=== PATIENT | female | born 1955 | race Caucasian/White ===

== ENCOUNTER 2022-09-10 10:58 | Inpatient (IN) | payer OTHER ==
[2022-09-10 16:16] LABS: HEMATOCRIT 37.8 % (32.4-45.2); HEMOGLOBIN 12.5 GM/dL (10.7-15.3); MCH 32.3 pg (25.7-33.7); MCHC 33.1 g/dl (32.0-36.0); MEAN CELL VOLUME 97.6 fl (80-96); MEAN PLT VOLUME 9.4 fl (7.5-11.1); RBC 3.87 M/mm3 (3.60-5.2); RDW 13.6 % (11.6-15.6)
[2022-09-10 16:32] LABS: CALCIUM 8.8 mg/dL (8.5-10.1)
[2022-09-10 16:33] LABS: ALBUMIN 3.1 g/dl (3.4-5.0); BLOOD UREA NITROGEN 20.4 mg/dL (7-18)
[2022-09-10 16:36] LABS: CREATININE 1.1 mg/dL (0.55-1.3)
[2022-09-10 16:37] LABS: BILIRUBIN,TOTAL 0.7 mg/dL (0.2-1); TOT PROT 6.6 g/dl (6.4-8.2)
[2022-09-10 16:59] LABS: ANISOCYTOSIS 1+; MACROCYTOSIS 0
[2022-09-10 17:00] LABS: WHITE BLOOD COUNT 17.8 K/mm3 (4.0-10.0)
[2022-09-10 17:01] LABS: PLATELET COUNT 215 10^3/uL (134-434)
[2022-09-10 17:36] LABS: EPI CELLS 24 /uL (0-25.1); HYALINE CASTS 4 /uL (0-3.1); PH,URINE 8.5 (5.0-8.0); URINE APPEARANCE CLOUDY; URINE BACTERIA >9,000 /uL (0-1359); URINE BILIRUBIN NEGATIVE (NEGATIVE); URINE COLOR DK YELLOW; URINE GLUCOSE (UA) NEGATIVE (NEGATIVE); URINE KETONE 1+ (NEGATIVE); URINE LEUK ESTERASE 1+ (NEGATIVE); URINE NITRITE POSITIVE (NEGATIVE); URINE PROTEIN 4+ (NEGATIVE); URINE WBC 398 /uL (0-25.8)
[2022-09-10 17:39] LABS: URINE RBC 71 /uL (0-23.9)
[2022-09-10] MEDS ORDERED: CEFTRIAXONE 1,000 MG in DEXTROSE 5%-WATER - 50 ML IVPB ONE (17:39)
[2022-09-10] MEDS ORDERED: CEFTRIAXONE 1 GM/50 ML BAG ONE (17:51)
[2022-09-11] MEDS: SODIUM CHLORIDE 1,000 ML IV SCH ×2 (01:50→23:09)
[2022-09-11 07:09] VITALS: BMI 24.3
[2022-09-11 08:52] LABS: HEMATOCRIT 35.1 % (32.4-45.2); HEMOGLOBIN 11.8 GM/dL (10.7-15.3); MCH 32.9 pg (25.7-33.7); MCHC 33.8 g/dl (32.0-36.0); MEAN CELL VOLUME 97.4 fl (80-96); MEAN PLT VOLUME 9.4 fl (7.5-11.1); PLATELET COUNT 150 10^3/uL (134-434); RDW 13.1 % (11.6-15.6); WHITE BLOOD COUNT 12.7 K/mm3 (4.0-10.0)
[2022-09-11 08:53] LABS: BASO % 0.1 % (0-2.0); EOS % 0.1 % (0-4.5); LYMPH % 5.4 % (8-40); MONO % 10.8 % (3.8-10.2); NEUT % 83.6 % (42.8-82.8)
[2022-09-11] MEDS: CEFTRIAXONE 1 GM in DEXTROSE 5%-WATER - 50 ML IVPB SCH (09:21)
[2022-09-11] MEDS: CHOLECALCIFEROL (VIT D3) 1,000 UNIT (25 MCG) TABLET PO SCH (09:21)
[2022-09-11] MEDS: levETIRAcetam 500 MG TABLET (FP) PO SCH ×2 (09:21→22:04)
[2022-09-11] MEDS: ENOXAPARIN NA (PORCINE) 40 MG/0.4 ML DISP.SYRIN SQ SCH (09:21)
[2022-09-11 09:34] LABS: ALBUMIN 2.8 g/dl (3.4-5.0); BLOOD UREA NITROGEN 27.9 mg/dL (7-18); CALCIUM 8.2 mg/dL (8.5-10.1); MAGNESIUM 2.3 mg/dL (1.8-2.4)
[2022-09-11 09:37] LABS: CREATININE 1.1 mg/dL (0.55-1.3); PHOSPHOROUS 4.2 mg/dL (2.5-4.9)
[2022-09-11 09:38] LABS: BILIRUBIN,TOTAL 0.5 mg/dL (0.2-1); TOT PROT 6.3 g/dl (6.4-8.2)
[2022-09-11] MEDS: carBAMazepine 200 MG TABLET PO SCH ×5 (10:00→22:04)
[2022-09-11] MEDS: VENLAFAXINE HCL 75 MG E.R. CAPSULES PO SCH (13:22)
[2022-09-11] MEDS: TOLTERODINE TARTRATE LA 4 MG CAP.SR.24H (FP) PO SCH (13:22)
[2022-09-11] MEDS ORDERED: ATORVASTATIN CA 20 MG TABLET (FP) PO SCH (22:00)
[2022-09-11] MEDS ORDERED: MELATONIN 5 MG TABLETS PO SCH (22:00)
[2022-09-12] MEDS ORDERED: POTASSIUM CHLORIDE ORAL LIQUID 20 MEQ/15 ML PO ONE ×2 (09:30→13:00)
[2022-09-12] MEDS: CEFTRIAXONE 1 GM in DEXTROSE 5%-WATER - 50 ML IVPB SCH (09:55)
[2022-09-12] MEDS: ENOXAPARIN NA (PORCINE) 40 MG/0.4 ML DISP.SYRIN SQ SCH (09:56)
[2022-09-12] MEDS: levETIRAcetam 500 MG TABLET (FP) PO SCH (09:56)
[2022-09-12] MEDS: CHOLECALCIFEROL (VIT D3) 1,000 UNIT (25 MCG) TABLET PO SCH (09:56)
[2022-09-12] MEDS: TOLTERODINE TARTRATE LA 4 MG CAP.SR.24H (FP) PO SCH (09:57)
[2022-09-12] MEDS: VENLAFAXINE HCL 75 MG E.R. CAPSULES PO SCH (09:57)
[2022-09-12] MEDS: carBAMazepine 100 MG TAB.CHEW PO SCH ×2 (09:59→14:03)
[2022-09-12 11:35] LABS: BASO % 0.1 % (0-2.0); EOS % 0.6 % (0-4.5); HEMATOCRIT 31.8 % (32.4-45.2); HEMOGLOBIN 10.9 GM/dL (10.7-15.3); LYMPH % 9.5 % (8-40); MCH 32.9 pg (25.7-33.7); MCHC 34.3 g/dl (32.0-36.0); MEAN CELL VOLUME 95.9 fl (80-96); MONO % 14.1 % (3.8-10.2); NEUT % 75.7 % (42.8-82.8); PLATELET COUNT 145 10^3/uL (134-434); RBC 3.31 M/mm3 (3.60-5.2); RDW 13.4 % (11.6-15.6); WHITE BLOOD COUNT 9.1 K/mm3 (4.0-10.0)
[2022-09-12 12:07] LABS: BLOOD UREA NITROGEN 18.6 mg/dL (7-18); CALCIUM 7.9 mg/dL (8.5-10.1)
[2022-09-12 12:10] LABS: CREATININE 0.6 mg/dL (0.55-1.3)
[2022-09-12 17:34] VITALS: BP 121/51; PULSE 74; RESP 18; TEMP 97.9
== END 2022-09-12 16:23 | disposition home or self-care (01) | DRG 690 ==
LOC: JER 10:58 → JERBED 17:58 → J5S 22:33
PROVIDERS: ADMIT Internal Medicine; ATTEND Internal Medicine
DX: N39.0 Urinary tract infection, site not specified (principal); E78.5 Hyperlipidemia, unspecified; G35 Multiple sclerosis; R00.0 Tachycardia, unspecified; F17.210 Nicotine dependence, cigarettes, uncomplicated; F32.9 Major depressive disorder, single episode, unspecified; N32.81 Overactive bladder; G40.909 Epilepsy, unspecified, not intractable, without status epilepticus; B96.4 Proteus (mirabilis) (morganii) as the cause of diseases classified elsewhere; Y92.098 Other place in other non-institutional residence as the place of occurrence of the external cause; W18.39XA Other fall on same level, initial encounter
CPT/HCPCS: 0241U-QW; 36415; 70450-TC; 71045-TC-FY; 72125-TC; 80048; 80053; 81003; 83735; 84100; 84484; 85025; 87086; 87186; 93005; 93010; 97116-GP; 97162-GP; 99285-25

== ENCOUNTER 2023-09-05 17:37 | Inpatient (IN) | payer OTHER ==
[2023-09-05] MEDS ORDERED: SODIUM CHLORIDE 0.9% 500 ML INFUS.BAG IV ONE ×2 (19:26→21:58)
[2023-09-05] MEDS ORDERED: ACETAMINOPHEN 325 MG TABLET (FP) PO ONE (19:26)
[2023-09-05] MEDS ORDERED: FAMOTIDINE 10 MG TABLET PO ONE (19:26)
[2023-09-05] MEDS ORDERED: MAG HYDROX/AL HYDROX/SIMETH 30 ML UNIT-DOSE CUP PO ONE (19:26)
[2023-09-05] MEDS ORDERED: levETIRAcetam 500 MG TABLET (FP) PO ONE (19:39)
[2023-09-05] MEDS ORDERED: PIPERACILLIN/TAZOB 3.375 GM 3.375 GM in DEXTROSE 5%-WATER - 50 ML IVPB ONE (19:52)
[2023-09-05] MEDS ORDERED: ACETAMINOPHEN 325 MG TABLET (FP) ONE (19:55)
[2023-09-05] MEDS ORDERED: FAMOTIDINE 20 MG TABLET ONE (19:55)
[2023-09-05] MEDS ORDERED: MAG HYDROX/AL HYDROX/SIMETH 30 ML UNIT-DOSE CUP ONE (19:55)
[2023-09-05 20:08] LABS: EPI CELLS 5 /uL (0-25.1); HYALINE CASTS 0 /uL (0-3.1); URINE APPEARANCE Error; URINE BACTERIA >9,000 /uL (0-1359); URINE BILIRUBIN NEGATIVE (NEGATIVE); URINE COLOR YELLOW; URINE GLUCOSE (UA) NEGATIVE (NEGATIVE); URINE KETONE 1+ (NEGATIVE); URINE LEUK ESTERASE 3+ (NEGATIVE); URINE NITRITE NEGATIVE (NEGATIVE); URINE PROTEIN 1+ (NEGATIVE); URINE RBC 674 /uL (0-23.9); URINE WBC 520 /uL (0-25.8)
[2023-09-05 21:18] LABS: HEMATOCRIT 28.8 % (32.4-45.2); HEMOGLOBIN 9.8 GM/dL (10.7-15.3); MCH 31.7 pg (25.7-33.7); MCHC 34.1 g/dl (32.0-36.0); MEAN CELL VOLUME 92.9 fl (80-96); MEAN PLT VOLUME 6.8 fl (7.5-11.1); PLATELET COUNT 501 10^3/uL (134-434); RDW 14.3 % (11.6-15.6); WHITE BLOOD COUNT 25.2 K/mm3 (4.0-10.0)
[2023-09-05 21:40] LABS: CHLORIDE 92 mmol/L (98-107); SODIUM 131 mmol/L (136-145)
[2023-09-05 21:42] LABS: ALBUMIN 2.1 g/dl (3.4-5.0)
[2023-09-05 21:43] LABS: BLOOD UREA NITROGEN 15.4 mg/dL (7-18); CALCIUM 8.5 mg/dL (8.5-10.1); CO2 28 mmol/L (21-32); GLUCOSE,RANDOM 68 mg/dL (74-106); LIPASE 87 U/L (73-393)
[2023-09-05 21:44] LABS: MAGNESIUM 1.9 mg/dL (1.8-2.4)
[2023-09-05] MEDS ORDERED: DEXTROSE 50%-WATER - 25 GM/50 ML VIAL IVPUSH ONE (21:44)
[2023-09-05 21:45] LABS: CREATININE 0.8 mg/dL (0.55-1.3)
[2023-09-05 21:46] LABS: SGOT/AST 64 U/L (15-37); SGPT/ALT 34 U/L (13-61)
[2023-09-05 21:47] LABS: TOT PROT 6.5 g/dl (6.4-8.2)
[2023-09-05 21:48] LABS: ALK PHOS 155 U/L (45-117)
[2023-09-05 21:52] LABS: ANION GAP 10 mmol/L (4-13); POTASSIUM 2.8 mmol/L (3.5-5.1)
[2023-09-05] MEDS ORDERED: POTASSIUM CHLORIDE TABS 20 MEQ TABLET.ER (FP) PO ONE ×2 (21:55→22:07)
[2023-09-05] MEDS ORDERED: DEXTROSE 50%-WATER 25 GM/50 ML DISP.SYRIN ONE (22:07)
[2023-09-05] MEDS ORDERED: MAGNESIUM SULF 50% (8.12 MEQ/2 ML-1 GM VIAL) IVPB ONE (22:09)
[2023-09-05 22:10] LABS: ANISOCYTOSIS 1+; MACROCYTOSIS 0; PLATELET ESTIMATE INCREASED
[2023-09-05] MEDS ORDERED: MAGNESIUM SULFATE IN WATER 2 GM/50 ML IVPB IVPB ONE (22:22)
[2023-09-06] MEDS: KCL 10 MEQ IVPB 10 MEQ/100 ML INFUS.BAG IVPB SCH ×2 (00:26→02:16)
[2023-09-06] MEDS ORDERED: MELATONIN 5 MG TABLETS PO ONE (00:30)
[2023-09-06] MEDS ORDERED: MELATONIN 5 MG TABLETS ONE (00:41)
[2023-09-06] MEDS ORDERED: KCL 10 MEQ IVPB 10 MEQ/100 ML INFUS.BAG IVPB ONE (02:17)
[2023-09-06] MEDS ORDERED: POTASSIUM CHLORIDE ORAL LIQUID 20 MEQ/15 ML PO ONE ×2 (02:29→18:33)
[2023-09-06] MEDS ORDERED: PIPERACILLIN/TAZOB 3.375 GM 3.375 GM/50 ML BAG IVPB SCH ×2 (03:00→04:45)
[2023-09-06 04:08] VITALS: BMI 23.5
[2023-09-06 07:51] LABS: HEMATOCRIT 31.4 % (32.4-45.2); HEMOGLOBIN 10.6 GM/dL (10.7-15.3); MCH 31.9 pg (25.7-33.7); MCHC 33.8 g/dl (32.0-36.0); MEAN CELL VOLUME 94.4 fl (80-96); MEAN PLT VOLUME 7.1 fl (7.5-11.1); PLATELET COUNT 412 10^3/uL (134-434); RBC 3.33 M/mm3 (3.60-5.2); RDW 14.3 % (11.6-15.6); WHITE BLOOD COUNT 21.9 K/mm3 (4.0-10.0)
[2023-09-06 08:56] LABS: ANISOCYTOSIS 1+; MACROCYTOSIS 0
[2023-09-06 09:06] LABS: CHLORIDE 103 mmol/L (98-107); SODIUM 131 mmol/L (136-145)
[2023-09-06 09:20] LABS: CALCIUM 7.9 mg/dL (8.5-10.1)
[2023-09-06 09:21] LABS: BLOOD UREA NITROGEN 11.6 mg/dL (7-18); CO2 23 mmol/L (21-32); GLUCOSE,RANDOM 80 mg/dL (74-106)
[2023-09-06 09:24] LABS: CREATININE 0.6 mg/dL (0.55-1.3)
[2023-09-06 09:26] LABS: ANION GAP 6 mmol/L (4-13); POTASSIUM 8.2 mmol/L (3.5-5.1)
[2023-09-06] MEDS ORDERED: PIPERACILLIN/TAZOB 3.375 GM 3.375 GM in DEXTROSE 5%-WATER - 50 ML IVPB SCH ×2 (09:57→11:00)
[2023-09-06] MEDS: VENLAFAXINE HCL 75 MG E.R. CAPSULES PO SCH (10:46)
[2023-09-06] MEDS: levETIRAcetam 500 MG TABLET (FP) PO SCH ×2 (10:47→21:22)
[2023-09-06] MEDS: CHOLECALCIFEROL (VIT D3) 1,000 UNIT (25 MCG) TABLET PO SCH (10:47)
[2023-09-06] MEDS: PIPERACILLIN/TAZOB 3.375 GM 3.375 GM in DEXTROSE 5%-WATER - 50 ML IVPB SCH ×3 (11:31→20:26)
[2023-09-06 15:26] LABS: POTASSIUM 3.4 mmol/L (3.5-5.1)
[2023-09-06 15:28] LABS: CALCIUM 7.7 mg/dL (8.5-10.1)
[2023-09-06 15:29] LABS: BLOOD UREA NITROGEN 10.8 mg/dL (7-18)
[2023-09-06 15:32] LABS: CREATININE 0.7 mg/dL (0.55-1.3)
[2023-09-06] MEDS: ATORVASTATIN CA 20 MG TABLET (FP) PO SCH (21:22)
[2023-09-06] MEDS: MELATONIN 5 MG TABLETS PO SCH (21:22)
[2023-09-07] MEDS: PIPERACILLIN/TAZOB 3.375 GM 3.375 GM in DEXTROSE 5%-WATER - 50 ML IVPB SCH ×2 (02:01→09:08)
[2023-09-07] MEDS: CHOLECALCIFEROL (VIT D3) 1,000 UNIT (25 MCG) TABLET PO SCH (09:08)
[2023-09-07] MEDS: levETIRAcetam 500 MG TABLET (FP) PO SCH ×2 (09:08→22:23)
[2023-09-07] MEDS: VENLAFAXINE HCL 75 MG E.R. CAPSULES PO SCH (09:09)
[2023-09-07 09:19] LABS: HEMATOCRIT 29.3 % (32.4-45.2); HEMOGLOBIN 9.6 GM/dL (10.7-15.3); MCH 30.8 pg (25.7-33.7); MCHC 32.8 g/dl (32.0-36.0); MEAN PLT VOLUME 6.8 fl (7.5-11.1); PLATELET COUNT 454 10^3/uL (134-434); RBC 3.12 M/mm3 (3.60-5.2); RDW 14.5 % (11.6-15.6); WHITE BLOOD COUNT 24.5 K/mm3 (4.0-10.0)
[2023-09-07 09:51] LABS: POTASSIUM 3.5 mmol/L (3.5-5.1)
[2023-09-07 10:01] LABS: ANISOCYTOSIS 0; HELMET CELLS 0; HOWELL-JOLLY BODIES 0; MACROCYTOSIS 0; OVALOCYTE 0; ROULEAU 0; SICKELED CELLS 0; TARGET CELLS 0; TEAR DROP CELLS 0; TOXIC GRANULATION 0
[2023-09-07 10:08] LABS: CALCIUM 8.4 mg/dL (8.5-10.1)
[2023-09-07 10:10] LABS: BLOOD UREA NITROGEN 11.2 mg/dL (7-18)
[2023-09-07 10:12] LABS: CREATININE 0.5 mg/dL (0.55-1.3)
[2023-09-07] MEDS: CEFTRIAXONE 1 GM in DEXTROSE 5%-WATER - 50 ML IVPB SCH (10:47)
[2023-09-07] MEDS: carBAMazepine 200 MG TABLET PO SCH ×4 (10:48→22:22)
[2023-09-07] MEDS: MELATONIN 5 MG TABLETS PO SCH (22:23)
[2023-09-07] MEDS: ATORVASTATIN CA 20 MG TABLET (FP) PO SCH (22:23)
[2023-09-08] MEDS: levETIRAcetam 500 MG TABLET (FP) PO SCH ×2 (09:33→21:29)
[2023-09-08] MEDS: carBAMazepine 200 MG TABLET PO SCH ×4 (09:33→21:31)
[2023-09-08] MEDS: CHOLECALCIFEROL (VIT D3) 1,000 UNIT (25 MCG) TABLET PO SCH (09:33)
[2023-09-08] MEDS: CEFTRIAXONE 1 GM in DEXTROSE 5%-WATER - 50 ML IVPB SCH (09:34)
[2023-09-08] MEDS: VENLAFAXINE HCL 75 MG E.R. CAPSULES PO SCH (09:34)
[2023-09-08 13:32] LABS: HEMATOCRIT 30.1 % (32.4-45.2); HEMOGLOBIN 9.8 GM/dL (10.7-15.3); MCH 30.7 pg (25.7-33.7); MCHC 32.7 g/dl (32.0-36.0); MEAN PLT VOLUME 6.6 fl (7.5-11.1); PLATELET COUNT 471 10^3/uL (134-434); RDW 14.6 % (11.6-15.6); WHITE BLOOD COUNT 18.4 K/mm3 (4.0-10.0)
[2023-09-08] MEDS: ACETAMINOPHEN 325 MG TABLET (FP) PO PRN (13:37)
[2023-09-08 13:50] LABS: POTASSIUM 3.4 mmol/L (3.5-5.1)
[2023-09-08 13:52] LABS: CALCIUM 7.9 mg/dL (8.5-10.1)
[2023-09-08 13:53] LABS: BLOOD UREA NITROGEN 14.8 mg/dL (7-18)
[2023-09-08 13:57] LABS: CREATININE 0.6 mg/dL (0.55-1.3)
[2023-09-08 14:13] LABS: ANISOCYTOSIS 1+; MACROCYTOSIS 0
[2023-09-08] MEDS: TOLTERODINE TARTRATE LA 4 MG CAP.SR.24H (FP) PO SCH (14:44)
[2023-09-08] MEDS ORDERED: POTASSIUM CHLORIDE ORAL LIQUID 20 MEQ/15 ML PO ONE (14:51)
[2023-09-08] MEDS: ATORVASTATIN CA 20 MG TABLET (FP) PO SCH (21:29)
[2023-09-08] MEDS: MELATONIN 5 MG TABLETS PO SCH (21:32)
[2023-09-09 08:28] LABS: BASO % 0.2 % (0-2.0); HEMATOCRIT 30.4 % (32.4-45.2); HEMOGLOBIN 9.9 GM/dL (10.7-15.3); LYMPH % 8.9 % (8-40); MCHC 32.5 g/dl (32.0-36.0); MEAN CELL VOLUME 92.4 fl (80-96); MEAN PLT VOLUME 6.4 fl (7.5-11.1); MONO % 7.5 % (3.8-10.2); NEUT % 83.4 % (42.8-82.8); PLATELET COUNT 495 10^3/uL (134-434); RBC 3.29 M/mm3 (3.60-5.2); RDW 14.8 % (11.6-15.6); WHITE BLOOD COUNT 15.9 K/mm3 (4.0-10.0)
[2023-09-09 08:40] LABS: POTASSIUM 3.9 mmol/L (3.5-5.1)
[2023-09-09 08:43] LABS: CALCIUM 7.8 mg/dL (8.5-10.1)
[2023-09-09 08:44] LABS: BLOOD UREA NITROGEN 15.9 mg/dL (7-18)
[2023-09-09 08:47] LABS: CREATININE 0.5 mg/dL (0.55-1.3)
[2023-09-09] MEDS: CEFTRIAXONE 1 GM in DEXTROSE 5%-WATER - 50 ML IVPB SCH (10:04)
[2023-09-09] MEDS: TOLTERODINE TARTRATE LA 4 MG CAP.SR.24H (FP) PO SCH (10:04)
[2023-09-09] MEDS: VENLAFAXINE HCL 75 MG E.R. CAPSULES PO SCH (10:04)
[2023-09-09] MEDS: CHOLECALCIFEROL (VIT D3) 1,000 UNIT (25 MCG) TABLET PO SCH (10:04)
[2023-09-09] MEDS: carBAMazepine 200 MG TABLET PO SCH (10:05)
[2023-09-09] MEDS: levETIRAcetam 500 MG TABLET (FP) PO SCH ×2 (10:05→22:10)
[2023-09-09] MEDS: ATORVASTATIN CA 20 MG TABLET (FP) PO SCH (22:10)
[2023-09-09] MEDS: MELATONIN 5 MG TABLETS PO SCH (22:10)
[2023-09-09] MEDS: OXYBUTYNIN CHLORIDE 5 MG TABLET PO SCH (22:39)
[2023-09-10 08:24] LABS: BASO % 0.3 % (0-2.0); EOS % 0.1 % (0-4.5); HEMATOCRIT 31.4 % (32.4-45.2); LYMPH % 12.1 % (8-40); MCH 30.1 pg (25.7-33.7); MCHC 31.9 g/dl (32.0-36.0); MEAN CELL VOLUME 94.3 fl (80-96); MEAN PLT VOLUME 6.6 fl (7.5-11.1); MONO % 6.2 % (3.8-10.2); NEUT % 81.3 % (42.8-82.8); PLATELET COUNT 518 10^3/uL (134-434); RBC 3.33 M/mm3 (3.60-5.2); RDW 14.6 % (11.6-15.6); WHITE BLOOD COUNT 13.6 K/mm3 (4.0-10.0)
[2023-09-10 08:30] LABS: POTASSIUM 3.9 mmol/L (3.5-5.1)
[2023-09-10 08:35] VITALS: RESP 18
[2023-09-10 08:38] LABS: CALCIUM 7.6 mg/dL (8.5-10.1)
[2023-09-10 08:39] LABS: BLOOD UREA NITROGEN 13.7 mg/dL (7-18)
[2023-09-10 08:42] LABS: CREATININE 0.5 mg/dL (0.55-1.3)
[2023-09-10] MEDS: CEFTRIAXONE 1 GM in DEXTROSE 5%-WATER - 50 ML IVPB SCH (09:11)
[2023-09-10] MEDS: levETIRAcetam 500 MG TABLET (FP) PO SCH ×2 (09:11→21:05)
[2023-09-10] MEDS: CHOLECALCIFEROL (VIT D3) 1,000 UNIT (25 MCG) TABLET PO SCH (09:11)
[2023-09-10] MEDS: OXYBUTYNIN CHLORIDE 5 MG TABLET PO SCH ×2 (09:12→21:06)
[2023-09-10] MEDS: VENLAFAXINE HCL 75 MG E.R. CAPSULES PO SCH (09:12)
[2023-09-10] MEDS: ACETAMINOPHEN 325 MG TABLET (FP) PO PRN (16:55)
[2023-09-10] MEDS: MELATONIN 5 MG TABLETS PO SCH (21:05)
[2023-09-10] MEDS: ATORVASTATIN CA 20 MG TABLET (FP) PO SCH (21:05)
[2023-09-11 06:37] VITALS: PULSE 65
[2023-09-11 08:13] LABS: BASO % 0.5 % (0-2.0); EOS % 0.3 % (0-4.5); HEMATOCRIT 30.6 % (32.4-45.2); LYMPH % 21.5 % (8-40); MCHC 32.5 g/dl (32.0-36.0); MEAN CELL VOLUME 92.3 fl (80-96); MEAN PLT VOLUME 6.5 fl (7.5-11.1); MONO % 7.9 % (3.8-10.2); NEUT % 69.8 % (42.8-82.8); PLATELET COUNT 518 10^3/uL (134-434); RBC 3.32 M/mm3 (3.60-5.2); RDW 14.9 % (11.6-15.6); WHITE BLOOD COUNT 11.1 K/mm3 (4.0-10.0)
[2023-09-11 09:04] VITALS: BP 109/65; TEMP 98.2
[2023-09-11] MEDS: OXYBUTYNIN CHLORIDE 5 MG TABLET PO SCH (09:40)
[2023-09-11] MEDS: CHOLECALCIFEROL (VIT D3) 1,000 UNIT (25 MCG) TABLET PO SCH (09:40)
[2023-09-11] MEDS: levETIRAcetam 500 MG TABLET (FP) PO SCH (09:41)
[2023-09-11] MEDS: CEFTRIAXONE 1 GM in DEXTROSE 5%-WATER - 50 ML IVPB SCH (09:41)
[2023-09-11] MEDS: VENLAFAXINE HCL 75 MG E.R. CAPSULES PO SCH (09:41)
== END 2023-09-11 19:20 | DRG 690 ==
LOC: JER 17:37 → JERBED 22:13 → J4S 09-06 03:02
PROVIDERS: ADMIT Internal Medicine; ATTEND Internal Medicine
DX: N39.0 Urinary tract infection, site not specified (principal); R65.10 Systemic inflammatory response syndrome (SIRS) of non-infectious origin without acute organ dysfunction; E87.6 Hypokalemia; G35 Multiple sclerosis; R56.9 Unspecified convulsions; I10 Essential (primary) hypertension; D72.829 Elevated white blood cell count, unspecified; E86.0 Dehydration; B96.20 Unspecified Escherichia coli [E. coli] as the cause of diseases classified elsewhere
CPT/HCPCS: 0241U-QW; 36415; 71045-TC-FY; 76775-TC; 80048; 80053; 80177; 81003; 83605; 83690; 83735; 85025; 87040; 87086; 87186; 87635; 93005; 93010; 97116-GP; 97161-GP; 99285-25